=== PATIENT | female | born 1960 | race Caucasian/White ===

== ENCOUNTER 2016-08-30 11:45 | Outpatient (CLI) | payer BC ==
[2016-08-30 16:28] LABS: ALT (SGPT) 22 U/L (8-55); AST (SGOT) 15 U/L (5-34); Albumin 4.3 g/dL (3.5-5.0); Alkaline Phosphatase 83 U/L (40-150); Anion Gap 17 mmol/L (10-20); BUN (Urea Nitrogen) 15 mg/dL (9.8-20.1); Bilirubin, Total 0.4 mg/dL (0.2-1.2); Calc. Creatinine Clearance 0 mL/min (70-130); Calcium 9.1 mg/dL (7.8-10.44); Carbon Dioxide 22 mmol/L (22-29); Cardiac Risk 6.7 (Less than 4.5); Chloride 105 mmol/L (98-107); Cholesterol 303 mg/dl (< 200 Desired); Estimated GFR-MDRD 69; Globulin 2.9 g/dL (2.4-3.5); Glucose 192 mg/dL (70-105); HDL Cholesterol 45 mg/dL (>60 Neg Risk); LDL Cholesterol, Calculated 183 mg/dL; Potassium 5.1 mmol/L (3.5-5.1); Protein, Total 7.2 g/dL (6.0-8.3); Sodium 139 mmol/L (136-145); Triglycerides 374 mg/dL (Less than 150)
[2016-08-30 16:34] LABS: Hemoglobin A1c 7.7 % (4.0-6.0)
[2016-08-30 16:38] LABS: Hemoglobin 15.5 g/dL (12.0-16.0); MDiff Complete? YES; Mean Corpuscular HGB CONC 34.6 g/dL (32.0-36.0); Mean Corpuscular Hemoglobin 30.3 pg (27.0-31.0); Mean Corpuscular Volume 87.8 fl (81.0-99.0); Mean Platelet Volume 7.4 fL (7.4-10.4); Platelet Count 190 thou/uL (130-400); RBC Distribution Width 11.8 % (11.5-14.5); Red Blood Cell (RBC) Count 5.11 mill/uL (4.20-5.40); White Blood Cell (WBC) Count 5.9 thou/uL (4.8-10.8)
[2016-08-30 16:39] LABS: Eosinophils 3 % (0-10); Lymphocytes 34 % (21-51); Monocytes 5 % (0-10); Neutrophil 58 % (42-75)
== END 2016-08-30 11:46 | disposition home or self-care (01) ==
LOC: LABLEX 11:45
PROVIDERS: ATTEND Family Medicine
DX: I10 Essential (primary) hypertension (principal); R10.32 Left lower quadrant pain; R82.90 Unspecified abnormal findings in urine; R81 Glycosuria
CPT/HCPCS: 80053; 80061; 83036; 84443; 85025

== ENCOUNTER 2016-11-06 10:16 | Outpatient (CLI) | payer BC ==
[2016-11-06 16:26] LABS: Anion Gap 15 mmol/L (10-20); BUN (Urea Nitrogen) 14 mg/dL (9.8-20.1); Calc. Creatinine Clearance 0 mL/min (70-130); Calcium 9.3 mg/dL (7.8-10.44); Carbon Dioxide 25 mmol/L (22-29); Cardiac Risk 5.7 (Less than 4.5); Chloride 107 mmol/L (98-107); Cholesterol 280 mg/dl (< 200 Desired); Estimated GFR-MDRD 66; Glucose 149 mg/dL (70-105); HDL Cholesterol 49 mg/dL (>60 Neg Risk); LDL Cholesterol, Calculated 191 mg/dL; Potassium 4.6 mmol/L (3.5-5.1); Sodium 142 mmol/L (136-145); Triglycerides 200 mg/dL (Less than 150)
[2016-11-06 16:35] LABS: Eosinophils 1 % (0-10); Hemoglobin 15.1 g/dL (12.0-16.0); Lymphocytes 24 % (21-51); MDiff Complete? YES; Mean Corpuscular HGB CONC 34.2 g/dL (32.0-36.0); Mean Corpuscular Hemoglobin 30.9 pg (27.0-31.0); Mean Corpuscular Volume 90.3 fl (81.0-99.0); Mean Platelet Volume 6.9 fL (7.4-10.4); Monocytes 8 % (0-10); Neutrophil 67 % (42-75); Platelet Count 151 thou/uL (130-400); RBC Distribution Width 12.2 % (11.5-14.5); Red Blood Cell (RBC) Count 4.87 mill/uL (4.20-5.40); White Blood Cell (WBC) Count 5.1 thou/uL (4.8-10.8)
[2016-11-06 17:02] LABS: Hemoglobin A1c 7.2 % (4.0-6.0)
== END 2016-11-06 10:17 | disposition home or self-care (01) ==
LOC: LABLEX 10:16
PROVIDERS: ATTEND Nurse Practitioner
DX: Z01.818 Encounter for other preprocedural examination (principal); E78.2 Mixed hyperlipidemia; E11.65 Type 2 diabetes mellitus with hyperglycemia
CPT/HCPCS: 80048; 80061; 83036; 85025

== ENCOUNTER 2019-06-25 14:15 | Emergency (ER) | payer BC ==
[2019-06-25] MEDS ORDERED: Ketorolac Tromethamine 30 MG/ML VIAL ONE (14:35)
--- NOTE | 2019-06-25 17:59 | RAD ---
RIGHT CLAVICLE TWO VIEWS: 06/25/19 The clavicle itself appears intact with no sign of fracture. The AC joint shows some minor bony spurr ing but is not widened or offset. The visible adjacent ribs and scapula appear intact. A bony sliver seen lateral to the great tubercle is most likely calcification in a tendon and indicative of calcifi c tendonitis. It seems less likely that this would be due to acute trauma. IMPRESSION: No definite acute findings. See above. POS: HOME
== END 2019-06-25 15:03 | disposition home or self-care (01) ==
LOC: BURERS 14:15
DX: S43.61XA Sprain of right sternoclavicular joint, initial encounter (principal); S13.4XXA Sprain of ligaments of cervical spine, initial encounter; S80.11XA Contusion of right lower leg, initial encounter; E78.5 Hyperlipidemia, unspecified; I10 Essential (primary) hypertension; V89.2XXA Person injured in unspecified motor-vehicle accident, traffic, initial encounter
CPT/HCPCS: 96374; J1885